=== PATIENT | female | born 1960 | race African-American/Black ===

== ENCOUNTER 2019-08-16 11:04 | Outpatient (CLI) | payer MEDICARE ==
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
== END 2019-08-16 11:05 | disposition home or self-care (01) ==
LOC: BICRAD 11:04
PROVIDERS: ATTEND Specialist
DX: M54.5 Low back pain (principal); M54.2 Cervicalgia; M43.12 Spondylolisthesis, cervical region; M47.812 Spondylosis without myelopathy or radiculopathy, cervical region
CPT/HCPCS: 72040; 72100